=== PATIENT | female | born 1950 | race Hispanic/Latino ===

== ENCOUNTER 2019-11-09 10:13 | Outpatient (CLI) | payer MEDICARE ==
--- NOTE | 2019-11-09 13:40 | ULT ---
RENAL ULTRASOUND: 11/09/19 HISTORY: UTI. Real time imaging of the right and left kidneys are performed. The right kidney measures 9.8. Left ki dney also 9.8 cm in size. Both kidneys show some mild increased echogenicity. There is no cyst, mass or obstruction. The bladder region shows bilateral ureteral jets. Prevoid volume is 420 mL. Postvoid volume is 115 mL. IMPRESSION: 1. No evidence of obstruction of either kidney. Some mild increased echogenicity to both kidneys suggests underlying medical renal parenchymal disease. Correlation with lab values are recommended. 2. Mild postvoid residual. POS: SOPHIA
== END 2019-11-09 10:14 | disposition home or self-care (01) ==
LOC: SCSULT 10:13
PROVIDERS: ATTEND Internal Medicine
DX: R39.9 Unspecified symptoms and signs involving the genitourinary system (principal); R39.198 Other difficulties with micturition; R93.422 Abnormal radiologic findings on diagnostic imaging of left kidney; R93.421 Abnormal radiologic findings on diagnostic imaging of right kidney
CPT/HCPCS: 76770

== ENCOUNTER 2025-04-13 12:31 | Outpatient (CLI) | payer MEDICARE | END 2025-04-13 12:32 | disposition home or self-care (01) | LOC: SCSULT 12:31 | PROVIDERS: ATTEND Family Medicine | DX: I82.402 Acute embolism and thrombosis of unspecified deep veins of left lower extremity (principal) ==